=== PATIENT | female | born 1980 | race Native Hawaiian/Other Pacific Islander ===

== ENCOUNTER 2017-10-23 14:30 | Observation (INO) | payer OTHER ==
--- NOTE | 2017-10-23 14:34 | PDOC ---
Rapid Medical Evaluation Time Seen by Provider: 10/23/17 14:32 Medical Evaluation: Allergies Allergy/AdvReac Type Severity Reaction Status Date / Time No Known Allergies Allergy Verified 10/23/17 14:32 10/23/17 14:32 I have performed a brief in-person evaluation of this patient. The patient presents with a chief complaint of: sent by PMD for Hgb-6.6 Pertinent physical exam findings: no active bleeding I have ordered the following: CBC, CMP, T&S, EKG, cardiac profile, ua, cxr The patient will proceed to the ED for further evaluation. Discharge Disposition - Diagnosis Anemia - Referrals - Patient Instructions - Post Discharge Activity
[2017-10-23 15:19] LABS: INR 1.25 (0.82-1.09); PROTHROMBIN TIME (PATIENT) 14.1 SEC (9.7-13.0)
[2017-10-23 15:31] LABS: ALBUMIN 4.1 g/dl (3.4-5.0); ANION GAP 8 (8-16); BLOOD UREA NITROGEN 14 mg/dL (7-18); CALCIUM 8.7 mg/dL (8.5-10.1); CHLORIDE 105 mmol/L (98-107); CO2 24 mmol/L (21-32); CREATININE 0.7 mg/dL (0.55-1.02); GLUCOSE,RANDOM 82 mg/dL (74-106); POTASSIUM 4.4 mmol/L (3.5-5.1); SGOT/AST 17 U/L (15-37); SGPT/ALT 21 U/L (12-78); SODIUM 137 mmol/L (136-145)
[2017-10-23 15:35] LABS: ALK PHOS 114 U/L (45-117); BILIRUBIN,TOTAL 0.4 mg/dL (0.2-1.0); TOT PROT 7.8 g/dl (6.4-8.2)
[2017-10-23 15:55] LABS: BASO % 1.3 % (0-2.0); EOS % 2.1 % (0-4.5); HEMATOCRIT 28.3 % (32.4-45.2); HEMOGLOBIN 7.3 GM/dL (10.7-15.3); LYMPH % 22.7 % (8-40); MCHC 25.9 g/dl (32.0-36.0); MEAN CELL VOLUME 52.1 fl (80-96); MEAN PLT VOLUME 9.9 fl (7.5-11.1); MONO % 4.9 % (3.8-10.2); PLATELET COUNT 336 K/MM3 (134-434); RBC 5.42 M/mm3 (3.60-5.2); RDW 23.6 % (11.6-15.6); WHITE BLOOD COUNT 9.8 K/mm3 (4.0-10.0)
[2017-10-23 15:56] LABS: MCH 13.5 pg (25.7-33.7)
--- NOTE | 2017-10-23 16:30 | PDOC ---
History of Present Illness - General Chief Complaint: Blood Transfusion Stated Complaint: BLOOD TRANSFUSION Time Seen by Provider: 10/23/17 14:32 History Source: Patient Exam Limitations: No Limitations - History of Present Illness Initial Comments: 10/23/17 16:29 The patient is a 37F with a PMH of anemia who presents from her PCP's office for worsening anemia. The patient states that for the past few weeks she's noticed that she's been getting more short of breath recently. She went to her PCP to get evaluated and he sent her to the ER for transfusion as he noticed her Hgb to be 6.6. She denies any CP, fever, chills, nausea, vomiting, hematuria , hematochezia, and bleeding when brushing her teeth. Past History - Past Medical History Allergies/Adverse Reactions: Allergies Allergy/AdvReac Type Severity Reaction Status Date / Time No Known Allergies Allergy Verified 10/23/17 14:32 Home Medications: Ambulatory Orders Amlodipine Besylate 5 mg PO DAILY 10/23/17 Varenicline Tartrate [Chantix] 1 mg PO DAILY 10/23/17 COPD: No HTN: Yes - Suicide/Smoking/Psychosocial Hx Smoking History: Current every day smoker Have you smoked in the past 12 months: Yes Number of Cigarettes Smoked Daily: 20 Information on smoking cessation initiated: Yes 'Breaking Loose' booklet given: 10/23/17 Hx Alcohol Use: No Drug/Substance Use Hx: No Substance Use Type: None Hx Substance Use Treatment: No Review of Systems - Review of Systems Able to Perform ROS?: Yes Comments:: 10/23/17 16:34 GENERAL/CONSTITUTIONAL: No fever or chills. No weakness. HEAD, EYES, EARS, NOSE AND THROAT: No change in vision. No ear pain or discharge. No sore throat. CARDIOVASCULAR: No chest pain, palpitations, or lightheadedness. RESPIRATORY: Positive for shortness of breath. No cough, wheezing, or hemoptysis. GASTROINTESTINAL: No nausea, vomiting, diarrhea, constipation, or abdominal pain. GENITOURINARY: No dysuria, frequency, hematuria, or change in urination. MUSCULOSKELETAL: No joint or muscle swelling or pain. No neck or back pain. SKIN: No rash or lesions. NEUROLOGIC: No headache, numbness, tingling, weakness, loss of consciousness, or change in strength/sensation. ENDOCRINE: No increased thirst. No abnormal weight change. HEMATOLOGIC/LYMPHATIC: No anemia, easy bleeding, or history of blood clots. ALLERGIC/IMMUNOLOGIC: No hives or skin allergy. Is the patient limited Armenian proficient: No *Physical Exam - Vital Signs Last Vital Signs Temp Pulse Resp BP Pulse Ox 98.5 F 91 H 18 152/104 100 10/23/17 14:33 10/23/17 14:33 10/23/17 14:33 10/23/17 14:33 10/23/17 14:33 - Physical Exam Comments: 10/23/17 16:35 GENERAL: Well developed, well nourished. Awake and alert. No acute distress. HEENT: Normocephalic, atraumatic. Hearing grossly normal. Moist mucous membranes. PERRLA, EOMI. No conjunctival pallor. Sclera are non-icteric. Oropharynx is clear. NECK: Supple. Full ROM. CARDIOVASCULAR: Regular rate and rhythm. No murmurs, rubs, or gallops. PULMONARY: No evidence of respiratory distress. Lungs clear to auscultation bilaterally. No wheezing, rales or rhonchi. ABDOMINAL: Soft. Non-tender. Non-distended. No rebound or guarding. GENITOURINARY: No CVA tenderness bilaterally. MUSCULOSKELETAL: Normal range of motion at all joints. No bony deformities or tenderness. EXTREMITIES: No cyanosis. No clubbing. No edema. No calf tenderness. SKIN: Warm and dry. Normal capillary refill. No rashes. No jaundice. NEUROLOGICAL: Alert, awake, appropriate. Cranial nerves 2-12 intact. Normal speech. Gait is normal without ataxia. PSYCHIATRIC: Cooperative. Good eye contact. Appropriate mood and affect. ED Treatment Course - LABORATORY CBC & Chemistry Diagram: 10/23/17 14:55 10/23/17 14:55 - ADDITIONAL ORDERS Additional order review: Laboratory Results 10/23/17 10/23/17 10/23/17 14:55 14:55 14:34 PT with INR 14.10 H INR 1.25 H Sodium 137 Potassium 4.4 Chloride 105 Carbon Dioxide 24 Anion Gap 8 BUN 14 Creatinine 0.7 Creat Clearance w eGFR > 60 Random Glucose 82 Calcium 8.7 Total Bilirubin 0.4 D AST 17 ALT 21 Alkaline Phosphatase 114 Creatine Kinase 37 Troponin I < 0.02 Total Protein 7.8 Albumin 4.1 Blood Type O POSITIVE Antibody Screen Negative 10/23/17 14:55 RBC 5.42 H MCV 52.1 L MCHC 25.9 L RDW 23.6 H D MPV 9.9 Neutrophils % 69.0 Lymphocytes % 22.7 D Monocytes % 4.9 Eosinophils % 2.1 Basophils % 1.3 Medical Decision Making - Medical Decision Making 10/23/17 16:35 The patient is a 37F with a PMH of anemia who presents with dyspnea and a Hgb of 6.[address] Johnson's office. Repeat CBC shows a hgb of 7.3. Will place order for 1 unit. 10/23/17 17:32 I have endorsed the patient to JOSE Navarro for ED Obs admission. Will transfuse [address] orders for ED Obs. *DC/Admit/Observation/Transfer Diagnosis at time of Disposition: Anemia Qualifiers: Anemia type: unspecified type Qualified Code(s): D64.9 - Anemia, unspecified - Discharge Dispostion Condition at time of disposition: Stable Decision to Admit order: Yes - Referrals Referrals: Ryland Johnson MD [Primary Care Provider] - - Patient Instructions - Post Discharge Activity
--- NOTE | 2017-10-23 17:29 | PDOC ---
Attending Attestation - Resident Resident Name: Derrek Li - ED Attending Attestation I have performed the following: I have examined & evaluated the patient, The case was reviewed & discussed with the resident, I agree w/resident's findings & plan, Exceptions are as noted - HPI HPI: 10/23/17 17:27 The patient is a 37 year old female with history of anemia who presents to the ED complaining of several weeks of progressively worsening shortness of breath. States she was seen by her PCP, who found her to be anemic on bloodwork and sent her to the ED for blood transfusions. States this has happened in the past with her anemia. No chest pain or lightheadedness. Pt has h/o menorraghia, which is believed to be the cause of pt's anemia. Denies hematemesis or blood per rectum. - Physicial Exam PE: 10/23/17 17:28 "GENERAL: Awake, alert, and fully oriented, in no acute distress. HEAD: No signs of trauma EYES: PERRLA, EOMI, sclera anicteric, conjunctiva clear ENT: Auricles normal inspection, hearing grossly normal, nares patent, oropharynx clear without exudates. Moist mucosa NECK: Nontender, no stepoffs, Normal ROM, supple, no lymphadenopathy, JVD, or masses LUNGS: Breath sounds equal, clear to auscultation bilaterally. No wheezes, and no crackles HEART: Regular rate and rhythm, normal S1 and S2, no murmurs, rubs or gallops ABDOMEN: Soft, nontender, normoactive bowel sounds. No guarding, no rebound. No masses EXTREMITIES: Normal range of motion, no edema. No clubbing or cyanosis. No cords, erythema, or tenderness NEUROLOGICAL: Cranial nerves II through XII intact. 5/5 strength and sensation in all extremities, Normal speech, normal gait, normal cerebellar function SKIN: Warm, Dry, normal turgor, no rashes or lesions noted. " - Medical Decision Making 10/23/17 17:29 37 F with likely symptomatic anemia. Hb <7 on outpt labs. Will recheck CBC and transfuse as needed. Pt otherwise hemodynamically stable. - Labs, T&S - Transfuse PRN 10/23/17 17:34 Pt's Hb 7.3 Will transfuse 1u PRBC given pt's persistent symptoms of SOB. Admit obs
--- NOTE | 2017-10-23 21:36 | HP ---
CHIEF COMPLAINT: Increased SOB, Low H/H PCP: Dr. Johnson HISTORY OF PRESENT ILLNESS: This is a 37 y/o young woman with a PMH Chronic Anemia (multiple blood transfusions), Menorrhagia, Hemorrhoids, Rectal Bleeding, HTN. Who presents to the ED sent in by her PMD for Hgb 6.6, with increased SOB with normal and moderate activity x 2 weeks. Patient reports having episodes of dizziness and fatigue. Patient reports having BRBPR with abdominal cramping 2 weeks ago. Patient reports having an EGD/Colonoscopy around 3 years ago- wnl. Patient reports that her menses is usually heavy, 8 days in which she uses 36 tampons and 36 pads during the first few days. Age of Menarche 11, cycle- Q28 days, LMP 10/02/17 ER course was notable for: (1) Hgb 7.3, Hct 28.8 (2) EKG- NSR with no ST or TWI (3) Chest Xray- no acute pathology Recent Travel: None PAST MEDICAL HISTORY: Chronic Anemia HTN Menorrhagia Rectal Bleeding PAST SURGICAL HISTORY: x2 EGD Colonoscopy Social History: Smoking: Cigarettes 1PPD Alcohol: None Drugs: None Lives with spouse and children, employed Family History: Father: HTN Mother: HTN, Hypothyroid, Hepatitis A Paternal Grandfather: Colon Ca Maternal Grandmother: Liver Ca Allergies No Known Allergies Allergy (Verified 10/23/17 14:32) HOME MEDICATIONS: Home Medications Medication Instructions Recorded Amlodipine Besylate 5 mg PO DAILY 10/23/17 Ferrous Sulfate 325 mg PO TID 10/23/17 Varenicline Tartrate [Chantix] 0.5 mg PO DAILY 10/23/17 REVIEW OF SYSTEMS CONSTITUTIONAL: fatigue Absent: fever, chills, diaphoresis, generalized weakness, malaise, loss of appetite, weight change HEENT: Absent: rhinorrhea, nasal congestion, throat pain, throat swelling, difficulty swallowing, mouth swelling, ear pain, eye pain, visual changes CARDIOVASCULAR: Absent: chest pain, syncope, palpitations, irregular heart rate, lightheadedness , peripheral edema RESPIRATORY: shortness of breath, dyspnea with exertion Absent: cough, orthopnea, wheezing, stridor, hemoptysis GASTROINTESTINAL: hematochezia Absent: abdominal pain, abdominal distension, nausea, vomiting, diarrhea, constipation, melena GENITOURINARY: Absent: dysuria, frequency, urgency, hesitancy, hematuria, flank pain, genital pain MUSCULOSKELETAL: Absent: myalgia, arthralgia, joint swelling, back pain, neck pain SKIN: Absent: rash, itching, pallor HEMATOLOGIC/IMMUNOLOGIC: Absent: easy bleeding, easy bruising, lymphadenopathy, frequent infections ENDOCRINE: Absent: unexplained weight gain, unexplained weight loss, heat intolerance, cold intolerance NEUROLOGIC: dizziness Absent: headache, focal weakness or paresthesias, dizziness, unsteady gait, seizure, mental status changes, bladder or bowel incontinence PSYCHIATRIC: Absent: anxiety, depression, suicidal or homicidal ideation, hallucinations. PHYSICAL EXAMINATION Vital Signs - 24 hr 10/23/17 10/23/17 10/23/17 14:33 17:30 18:18 Temperature 98.5 F Pulse Rate 91 H Pulse Rate [ 99 H Apical] Respiratory 18 14 Rate Blood Pressure 152/104 Blood Pressure 157/95 [Left Arm] O2 Sat by Pulse 100 100 100 Oximetry (%) 10/23/17 10/23/17 20:40 20:55 Temperature 98.2 F 98.2 F Pulse Rate Pulse Rate [ 98 H 83 Apical] Respiratory 18 20 Rate Blood Pressure Blood Pressure 151/89 142/79 [Left Arm] O2 Sat by Pulse 100 100 Oximetry (%) GENERAL: Awake, alert, and fully oriented, in no acute distress. HEAD: Normal with no signs of trauma. EYES: Pupils equal, round and reactive to light, extraocular movements intact, sclera anicteric, conjunctiva, pale clear. No lid lag. EARS, NOSE, THROAT: Ears normal, nares patent, oropharynx clear without exudates. Moist mucous membranes. NECK: Normal range of motion, supple without lymphadenopathy, JVD, or masses. LUNGS: Breath sounds equal, clear to auscultation bilaterally. No wheezes, and no crackles. No accessory muscle use. HEART: Regular rate and rhythm, normal S1 and S2 without murmur, rub or gallop. ABDOMEN: Soft, nontender, not distended, normoactive bowel sounds, no guarding, no rebound, no masses. No hepatomegaly or splenomegaly. MUSCULOSKELETAL: Normal range of motion at all joints. No bony deformities or tenderness. No CVA tenderness. UPPER EXTREMITIES: 2+ pulses, warm, well-perfused. No cyanosis. No clubbing. No peripheral edema. LOWER EXTREMITIES: 2+ pulses, warm, well-perfused. No calf tenderness. No peripheral edema. NEUROLOGICAL: Cranial nerves II-XII intact. Normal speech. Gait not observed. PSYCHIATRIC: Cooperative. Good eye contact. Appropriate mood and affect. SKIN: Warm, dry, normal turgor, no rashes or lesions noted, normal capillary refill. Laboratory Results - last 24 hr 10/23/17 10/23/17 10/23/17 14:34 14:55 14:55 WBC 9.8 RBC 5.42 H Hgb 7.3 L Hct 28.3 L MCV 52.1 L MCH 13.5 L MCHC 25.9 L RDW 23.6 H D Plt Count 336 MPV 9.9 Neutrophils % 69.0 Lymphocytes % 22.7 D Monocytes % 4.9 Eosinophils % 2.1 Basophils % 1.3 PT with INR 14.10 H INR 1.25 H Sodium Potassium Chloride Carbon Dioxide Anion Gap BUN Creatinine Creat Clearance w eGFR Random Glucose Calcium Total Bilirubin AST ALT Alkaline Phosphatase Creatine Kinase Troponin I Total Protein Albumin Serum , Qual Blood Type O POSITIVE Antibody Screen Negative Crossmatch See Detail 10/23/17 10/23/17 14:55 21:01 WBC RBC Hgb Hct MCV MCH MCHC RDW Plt Count MPV Neutrophils % Lymphocytes % Monocytes % Eosinophils % Basophils % PT with INR INR Sodium 137 Potassium 4.4 Chloride 105 Carbon Dioxide 24 Anion Gap 8 BUN 14 Creatinine 0.7 Creat Clearance w eGFR > 60 Random Glucose 82 Calcium 8.7 Total Bilirubin 0.4 D AST 17 ALT 21 Alkaline Phosphatase 114 Creatine Kinase 37 Troponin I < 0.02 Total Protein 7.8 Albumin 4.1 Serum , Qual Negative Blood Type Antibody Screen Crossmatch ASSESSMENT/PLAN: This is a 37 y/o young woman with a PMH of Chronic Anemia, Menorrhagia, HTN, Rectal Bleeding. Placed in Tele Observation for Symptomatic Anemia. Problem List - Problem (1) Anemia Assessment/Plan: - Hx of anemia with multiple transfusions - Patient currently symptomatic with increased SOB - Hgb 7.3 here, at PCPs 6.6 - Given PRBC x1 in ED - Will add on Iron Studies - Serum Preg-pending - Will order CXR r/o HF - Patient should f/u with Hematology and GI 2/2 hx rectal bleeding - Continue Ferrous Sulfate - Will add Colace, Senna to avoid constipation and encourage pt. compliance with her iron supplements - Repeat CBC in am - Pt to d/c tomorrow, if symptoms resolve, Hgb improved - Monitor vitals Code(s): D64.9 - ANEMIA, UNSPECIFIED Qualifiers: Anemia type: unspecified type Qualified Code(s): D64.9 - Anemia, unspecified (2) HTN (hypertension) Assessment/Plan: - Sub optimal control - Monitor BP - Continue Amlodipine - Monitor renal function Code(s): I10 - ESSENTIAL (PRIMARY) HYPERTENSION (3) H/O menorrhagia Assessment/Plan: - stable - FU with [employer] in outpatient Code(s): Z87.42 - PERSONAL HISTORY OF OTH DISEASES OF THE FEMALE GENITAL TRACT (4) Tobacco dependency Assessment/Plan: - Counseled on smoking cessation - Continue Chantix Code(s): F17.200 - NICOTINE DEPENDENCE, UNSPECIFIED, UNCOMPLICATED (5) Hemorrhoid Assessment/Plan: - Stable - Adequate fluid intake and increase fiber to diet Code(s): K64.9 - UNSPECIFIED HEMORRHOIDS (6) Rectal bleeding Assessment/Plan: - Patient reports BRBPR with abdominal cramping, 2 weeks ago - Appreciate GI Consult Code(s): K62.5 - HEMORRHAGE OF ANUS AND RECTUM (7) DVT prophylaxis Assessment/Plan: - Low Risk - OOB - SCDs Code(s): [id number] - Visit type - Emergency Visit Emergency Visit: Yes ED Registration Date: 10/23/17 Care time: The patient presented to the Emergency Department on the above date and was hospitalized for further evaluation of their emergent condition. - New Patient This patient is new to me today: Yes Date on this admission: 10/23/17 - Critical Care Critical Care patient: No Hospitalist Screening - Colonoscopy Questionnaire Colonoscopy Questionnaire: Colonoscopy Questionnaire - Patient: 50 - 75 years old and never had a screening colonoscopy: No History of colon or rectal polyps, or CA: No History of IBD, Crohn's disease or UC: No History of abdominal radiation therapy as a child: No - Relative: 1 with colon or rectal CA, or polyps at age 60 or younger: Yes Colon or rectal CA diagnosed at age 45 or younger: No Multiple relatives with colon or rectal CA: No - Outcome: Screening Result: Positive Screen
[2017-10-23] MEDS ORDERED: FERROUS SO4 325 MG TABLET (FP) ONE (22:55)
[2017-10-23] MEDS ORDERED: DOCUSATE SODIUM 100 MG CAPSULE (FP) PO ONE (22:55)
[2017-10-23] MEDS: VARENICLINE TARTRATE 0.5 MG TAB PO SCH (23:56)
[2017-10-23] MEDS: DOCUSATE SODIUM 100 MG CAPSULE (FP) PO SCH (23:58)
[2017-10-23] MEDS: FERROUS SO4 325 MG TABLET (FP) PO SCH (23:59)
[2017-10-24] MEDS ORDERED: ZOLPIDEM TARTRATE 5 MG TABLET PO ONE (02:17)
[2017-10-24 04:27] VITALS: BMI 38.1
[2017-10-24] MEDS: DOCUSATE SODIUM 100 MG CAPSULE (FP) PO SCH ×2 (05:58→15:03)
[2017-10-24 07:31] LABS: CHLORIDE 106 mmol/L (98-107); POTASSIUM 4.2 mmol/L (3.5-5.1); SODIUM 139 mmol/L (136-145)
[2017-10-24 07:35] LABS: ANION GAP 9 (8-16); BLOOD UREA NITROGEN 9 mg/dL (7-18); CALCIUM 8.6 mg/dL (8.5-10.1); CO2 24 mmol/L (21-32); CREATININE 0.6 mg/dL (0.55-1.02); GLUCOSE,RANDOM 85 mg/dL (74-106)
[2017-10-24] MEDS ORDERED: PT OWN MED DRAWER 7, Y5N ONE (08:36)
[2017-10-24 08:52] LABS: HEMATOCRIT 27.8 % (32.4-45.2); HEMOGLOBIN 7.9 GM/dL (10.7-15.3); MCHC 28.5 g/dl (32.0-36.0); MEAN CELL VOLUME 55.3 fl (80-96); RBC 5.02 M/mm3 (3.60-5.2); WHITE BLOOD COUNT 10.3 K/mm3 (4.0-10.0)
[2017-10-24 08:53] LABS: BASO % 0.8 % (0-2.0); EOS % 2.3 % (0-4.5); LYMPH % 15.8 % (8-40); MEAN PLT VOLUME 9.6 fl (7.5-11.1); MONO % 5.7 % (3.8-10.2); NEUT % 75.4 % (42.8-82.8); PLATELET COUNT 274 K/MM3 (134-434); RDW 23.7 % (11.6-15.6)
[2017-10-24 09:10] LABS: MCH 15.7 pg (25.7-33.7)
[2017-10-24] MEDS: FERROUS SO4 325 MG TABLET (FP) PO SCH ×3 (09:17→18:36)
[2017-10-24] MEDS: VARENICLINE TARTRATE 0.5 MG TAB PO SCH (09:22)
[2017-10-24] MEDS ORDERED: amLODIPine BESYLATE 5 MG TABLET (FP) PO SCH (10:00)
--- NOTE | 2017-10-24 11:55 | EKG ---
Test Reason : Blood Pressure : / mmHG Vent. Rate : 096 BPM Atrial Rate : 096 BPM P-R Int : 128 ms QRS Dur : 084 ms QT Int : 334 ms P-R-T Axes : 009 028 059 degrees QTc Int : 421 ms NORMAL SINUS RHYTHM NORMAL ECG WHEN COMPARED WITH ECG OF 04-SEP-2015 18:17, NO SIGNIFICANT CHANGE WAS FOUND Confirmed by MD PIERRE, MATY ([id number]) on 10/24/2017 11:55:11 AM Referred By: Confirmed By:MATY JAY MD
[2017-10-24 11:59] LABS: PLATELET ESTIMATE ADEQUATE
--- NOTE | 2017-10-24 14:14 | PN ---
Progress Note, Physician Chief Complaint: EVENTS AND NOTES REVIEWED SENT FROM OFFICE FOR BRBPR AND ANEMIA WITH HEMOGLOBIN OF 6 AWAKE ALERT NAD - Current Medication List Current Medications: Active Medications Amlodipine Besylate (Norvasc -) 5 mg PO DAILY [facility] Last Admin: 10/24/17 09:17 Dose: 5 mg Docusate Sodium (Colace -) 100 mg PO TID [facility] Last Admin: 10/24/17 05:58 Dose: 100 mg Ferrous Sulfate (Feosol -) 325 mg PO TIDCM [facility] Last Admin: 10/24/17 12:20 Dose: 325 mg Iron Sucrose 100 mg/ Sodium (Chloride) 100 mls @ 200 mls/hr IVPB ONCE ONE Stop: 10/24/17 14:37 Varenicline (Chantix -) 0.5 mg PO BID [facility] Last Admin: 10/24/17 09:22 Dose: 0.5 mg - Objective Vital Signs: Vital Signs Temperature 97.8 F 10/24/17 09:00 Pulse Rate 96 H 10/24/17 09:00 Respiratory Rate 22 10/24/17 09:00 Blood Pressure 153/91 10/24/17 09:00 O2 Sat by Pulse Oximetry (%) 100 10/24/17 05:18 Constitutional: Yes: No Distress Eyes: Yes: WNL HENT: Yes: WNL Neck: Yes: WNL Cardiovascular: Yes: WNL Respiratory: Yes: WNL Gastrointestinal: Yes: WNL Genitourinary: Yes: WNL Musculoskeletal: Yes: WNL Extremities: Yes: WNL Edema: No Peripheral Pulses WNL: Yes Integumentary: Yes: WNL Wound/Incision: Yes: Clean/Dry Neurological: Yes: WNL ...Motor Strength: WNL Psychiatric: Yes: WNL Labs: CBC, BMP 10/24/17 06:35 10/24/17 06:35 INR, PTT INR 1.25 (0.82-1.09) H 10/23/17 14:55 Problem List - Problems (1) Anemia Code(s): D64.9 - ANEMIA, UNSPECIFIED Qualifiers: Anemia type: unspecified type Qualified Code(s): D64.9 - Anemia, unspecified (2) DVT prophylaxis Code(s): [id number] - (3) HTN (hypertension) Code(s): I10 - ESSENTIAL (PRIMARY) HYPERTENSION (4) Rectal bleeding Code(s): K62.5 - HEMORRHAGE OF ANUS AND RECTUM Assessment/Plan TRANSFUSE PRBC AND IRON GI EVAL DVT PROPHYLAXIS OOB TO CHAIR CHECK CBC IN AM
[2017-10-24] MEDS ORDERED: IRON SUCROSE INJECTION 100 MG in SODIUM CHLORIDE 95 ML IVPB ONE (14:15)
--- NOTE | 2017-10-24 15:57 | CONSULT ---
Consult Consult Specialty:: Hematology - History of Present Illness History of Present Illness: 37 y/o young woman with a PMH Chronic Anemia (multiple blood transfusions), Menorrhagia, Hemorrhoids, Rectal Bleeding, HTN. Who presents to the ED sent in by her PMD for Hgb 6.6, with increased SOB with normal and moderate activity x 2 weeks. Patient reports having episodes of dizziness and fatigue. Patient reports having BRBPR with abdominal cramping 2 weeks ago. Patient reports having an EGD/Colonoscopy around 3 years ago- wnl. Patient reports that her menses is usually heavy, 8 days. pt seen and examined. d/w pt. - History Source History Provided By: Patient, Medical Record - Past Medical History ...LMP: 05/29/16 - Past Surgical History Past Surgical History: Yes: None - Alcohol/Substance Use Hx Alcohol Use: No History of Substance Use: reports: None - Smoking History Smoking history: Current every day smoker Have you smoked in the past 12 months: Yes Aproximately how many cigarettes per day: 20 - Social History ADL: Independent History of Recent Travel: No Home Medications - Allergies Allergies/Adverse Reactions: Allergies Allergy/AdvReac Type Severity Reaction Status Date / Time No Known Allergies Allergy Verified 10/23/17 14:32 - Home Medications Home Medications: Ambulatory Orders Amlodipine Besylate 5 mg PO DAILY 10/23/17 Ferrous Sulfate 325 mg PO TID 10/23/17 Varenicline Tartrate [Chantix] 0.5 mg PO DAILY 10/23/17 Amlodipine Besylate [Norvasc -] 5 mg PO DAILY tablet 10/24/17 Docusate Sodium [Colace -] 100 mg PO TID capsule 10/24/17 Ferrous Sulfate [Feosol] 325 mg PO TIDCM ud 10/24/17 Pantoprazole Sodium [Protonix -] 40 mg PO DAILY #30 tablet.ec 10/24/17 Varenicline Tartrate [Chantix -] 0.5 mg PO BID tab 10/24/17 Physical Exam Vital Signs: Vital Signs Temperature 98.2 F 10/24/17 14:00 Pulse Rate 87 10/24/17 14:00 Respiratory Rate 22 10/24/17 09:00 Blood Pressure 143/74 10/24/17 14:00 O2 Sat by Pulse Oximetry (%) 100 10/24/17 05:18 Constitutional: Yes: Well Nourished, No Distress Eyes: Yes: WNL, Conjunctiva Clear HENT: Yes: Atraumatic, Normocephalic Neck: Yes: Supple, Trachea Midline Cardiovascular: Yes: Regular Rate and Rhythm Respiratory: Yes: Regular, CTA Bilaterally Gastrointestinal: Yes: Normal Bowel Sounds, Soft, Abdomen, Obese Labs: CBC, BMP 10/24/17 06:35 10/24/17 06:35 Assessment/Plan Severe Iron deficiency anemia -severe menorrhogea could be an etiology -GI w/u pending -for PRBCs, post will give venofer LOS -for OP f/u -d.w the pt in detail
--- NOTE | 2017-10-24 19:02 | CON.GI ---
Consult Consult Specialty:: GI Reason for Consultation:: symptomatic anemia, bright red blood per rectum - History of Present Illness History of Present Illness: chart reviewed. Events noted. As per initial intake:This is a 37 y/o young woman with a PMH Chronic Anemia (multiple blood transfusions), Menorrhagia, Hemorrhoids, Rectal Bleeding, HTN. Who presents to the ED sent in by her PMD for Hgb 6.6, with increased SOB with normal and moderate activity x 2 weeks. Patient reports having episodes of dizziness and fatigue. Patient reports having BRBPR with abdominal cramping 2 weeks ago. Patient reports having an EGD/ Colonoscopy around 3 years ago- wnl. Patient reports that her menses is usually heavy, 8 days in which she uses 36 tampons and 36 pads during the first few days. Age of Menarche 11, cycle- Q28 days, LMP 10/02/17 At the time of this and contacted the patient appears comfortable. No stigmata of ongoing gastrointestinal bleeding. Patient reports having epigastric pain followed by a bloody bowel movement was at 3 hours later. Denies chronic heartburn, dysphagia, odynophagia, hematemesis, jaundice, low grade fever, chills, changes in stool caliber, unintentional weight loss. EGD and colonoscopy 3 years ago were unrevealing. Since admission, patient received 1 unit of PRBC and IV iron. there is no history of gastric, or duodenal ulcer, significant esophagitis, coagulopathy. Denies chronic alcohol , or NSAID use. blood work revealed microcytic, hypochromic anemia. Normal BUN and creatinine. - History Source History Provided By: Patient, Medical Record - Past Medical History ...LMP: 05/29/16 - Past Surgical History Past Surgical History: Yes: None - Alcohol/Substance Use Hx Alcohol Use: No History of Substance Use: reports: None - Smoking History Smoking history: Current every day smoker Have you smoked in the past 12 months: Yes Aproximately how many cigarettes per day: 20 - Social History ADL: Independent History of Recent Travel: No Home Medications - Allergies Allergies/Adverse Reactions: Allergies Allergy/AdvReac Type Severity Reaction Status Date / Time No Known Allergies Allergy Verified 10/23/17 14:32 - Home Medications Home Medications: Ambulatory Orders Amlodipine Besylate 5 mg PO DAILY 10/23/17 Ferrous Sulfate 325 mg PO TID 10/23/17 Varenicline Tartrate [Chantix] 0.5 mg PO DAILY 10/23/17 Family Disease History - Family Disease History Family History: Unremarkable Review of Systems Findings/Remarks: As per H&P and HPI Physical Exam-GI Vital Signs: Vital Signs Temperature 98.2 F 10/24/17 14:00 Pulse Rate 87 10/24/17 14:00 Respiratory Rate 22 10/24/17 13:00 Blood Pressure 143/74 10/24/17 14:00 O2 Sat by Pulse Oximetry (%) 98 10/24/17 13:00 Constitutional: Yes: Well Nourished, No Distress, Calm Eyes: Yes: Conjunctiva Clear HENT: Yes: Atraumatic Neck: Yes: Supple Cardiovascular: Yes: Regular Rate and Rhythm. No: Bradycardia, Tachycardia Respiratory: Yes: Regular ...Auscultate: Yes: Normoactive Bowel Sounds ...Rectal Exam: Yes: Guaiac Positive Neurological: Yes: Alert, Oriented Labs: CBC, BMP 10/24/17 06:35 10/24/17 06:35 INR, PTT INR 1.25 (0.82-1.09) H 10/23/17 14:55 Laboratory Last Values WBC 10.3 K/mm3 (4.0-10.0) H 10/24/17 06:35 RBC 5.02 M/mm3 (3.60-5.2) 10/24/17 06:35 Hgb 7.9 GM/dL (10.7-15.3) L 10/24/17 06:35 Hct 27.8 % (32.4-45.2) L 10/24/17 06:35 MCV 55.3 fl (80-96) L D 10/24/17 06:35 MCH 15.7 pg (25.7-33.7) L 10/24/17 06:35 MCHC 28.5 g/dl (32.0-36.0) L 10/24/17 06:35 RDW 23.7 % (11.6-15.6) H 10/24/17 06:35 Plt Count 274 K/MM3 (134-434) 10/24/17 06:35 MPV 9.6 fl (7.5-11.1) 10/24/17 06:35 Neutrophils % 75.4 % (42.8-82.8) 10/24/17 06:35 Lymphocytes % 15.8 % (8-40) D 10/24/17 06:35 Monocytes % 5.7 % (3.8-10.2) 10/24/17 06:35 Eosinophils % 2.3 % (0-4.5) 10/24/17 06:35 Basophils % 0.8 % (0-2.0) 10/24/17 06:35 Platelet Estimate Adequate 10/24/17 06:35 Platelet Comment Few large plts 10/24/17 06:35 PT with INR 14.10 SEC (9.7-13.0) H 10/23/17 14:55 INR 1.25 (0.82-1.09) H 10/23/17 14:55 Sodium 139 mmol/L (136-145) 10/24/17 06:35 Potassium 4.2 mmol/L (3.5-5.1) 10/24/17 06:35 Chloride 106 mmol/L (98-107) 10/24/17 06:35 Carbon Dioxide 24 mmol/L (21-32) 10/24/17 06:35 Anion Gap 9 (8-16) 10/24/17 06:35 BUN 9 mg/dL (7-18) 10/24/17 06:35 Creatinine 0.6 mg/dL (0.55-1.02) 10/24/17 06:35 Creat Clearance w eGFR > 60 (>60) 10/23/17 14:55 Random Glucose 85 mg/dL (74-106) 10/24/17 06:35 Calcium 8.6 mg/dL (8.5-10.1) 10/24/17 06:35 Ferritin 5.020 ng/ml (6.9-282.5) L 10/23/17 09:40 Total Bilirubin 0.4 mg/dL (0.2-1.0) D 10/23/17 14:55 AST 17 U/L (15-37) 10/23/17 14:55 ALT 21 U/L (12-78) 10/23/17 14:55 Alkaline Phosphatase 114 U/L (45-117) 10/23/17 14:55 Creatine Kinase 37 IU/L (26-192) 10/23/17 14:55 Troponin I < 0.02 ng/ml (0.00-0.05) 10/23/17 14:55 Total Protein 7.8 g/dl (6.4-8.2) 10/23/17 14:55 Albumin 4.1 g/dl (3.4-5.0) 10/23/17 14:55 Serum , Qual Negative 10/23/17 21:01 Blood Type O POSITIVE 10/23/17 14:34 Antibody Screen Negative 10/23/17 14:34 Crossmatch See Detail 10/23/17 14:34 Problem List - Problems (1) Gastrointestinal bleeding, lower Code(s): K92.2 - GASTROINTESTINAL HEMORRHAGE, UNSPECIFIED (2) Gastrointestinal bleeding, upper Code(s): K92.2 - GASTROINTESTINAL HEMORRHAGE, UNSPECIFIED (3) Microcytic hypochromic anemia Code(s): D50.9 - IRON DEFICIENCY ANEMIA, UNSPECIFIED (4) Symptomatic anemia Code(s): D64.9 - ANEMIA, UNSPECIFIED Assessment/Plan Gastrointestinal blood loss. Symptomatic anemia. Status post 1 unit of PRBC and iron IV. Asymptomatic at this time. Normal vital signs. No ongoing GI symptoms, or stigmata of ongoing gastrointestinal blood loss. EGD and colonoscopy are recommended to valuate for intraluminal lesions leading to bleeding and iron deficiency. Protonix 40 mg daily 30 minutes before breakfast for now. Avoid NSAIDs. Close monitoring for worsening gastrointestinal bleeding. Patient verbalized understanding and agrees with recommendations
[2017-10-24] MEDS ORDERED: PANTOPRAZOLE 40 MG TABLET (FP) PO SCH (19:15)
--- NOTE | 2017-10-24 19:34 | DS ---
Physical Examination Vital Signs: Vital Signs Temperature 98.2 F 10/24/17 14:00 Pulse Rate 87 10/24/17 14:00 Respiratory Rate 22 10/24/17 13:00 Blood Pressure 143/74 10/24/17 14:00 O2 Sat by Pulse Oximetry (%) 98 10/24/17 13:00 Findings/Remarks: see progress note cleared by GI and Hematology to go home and complete workup as outpatient Labs: CBC, BMP 10/24/17 06:35 10/24/17 06:35 Discharge Summary Reason For Visit: ANEMIA Current Active Problems Anemia (Acute) DVT prophylaxis (Acute) Gastrointestinal bleeding, lower (Acute) Gastrointestinal bleeding, upper (Acute) H/O menorrhagia (Acute) HTN (hypertension) (Acute) Microcytic hypochromic anemia (Acute) Symptomatic anemia (Acute) Tobacco dependency (Acute) Hospital Course: prbc transfusion and venofer transfusion, monitored for gi bleed and acute anemia workup as outpatient Condition: Stable - Instructions Diet, Activity, Other Instructions: see dr barboza in 1 week at his office for labs f/u with gi dr chung and heme dr cantu Referrals: Ryland Barboza MD [Primary Care Provider] - Disposition: HOME - Home Medications Comprehensive Discharge Medication List: Ambulatory Orders Amlodipine Besylate 5 mg PO DAILY 10/23/17 Ferrous Sulfate 325 mg PO TID 10/23/17 Varenicline Tartrate [Chantix] 0.5 mg PO DAILY 10/23/17 Amlodipine Besylate [Norvasc -] 5 mg PO DAILY tablet 10/24/17 Docusate Sodium [Colace -] 100 mg PO TID capsule 10/24/17 Ferrous Sulfate [Feosol] 325 mg PO TIDCM ud 10/24/17 Pantoprazole Sodium [Protonix -] 40 mg PO DAILY #30 tablet.ec 10/24/17 Varenicline Tartrate [Chantix -] 0.5 mg PO BID tab 10/24/17
[2017-10-24 23:09] VITALS: BP 147/88; PULSE 86; TEMP 98
[2017-10-25 08:07] LABS: SERUM IRON SATURATION 7 % (15-55); TOTAL IRON BINDING CAPACITY 446 ug/dL (250-450); UIBC 414 ug/dL (131-425)
[2017-10-27 16:31] LABS: HGB SOLUBILITY Negative (Negative); Hgb A 98.4 % (96.4-98.8); Hgb C 0 % (0.0); Hgb F 0 % (0.0-2.0); Hgb S 0 % (0.0)
== END 2017-10-24 20:11 | disposition home or self-care (01) ==
LOC: JER 14:30 → JERBED 17:48 → J4W 10-24 03:43
PROVIDERS: ADMIT Hospitalist; ATTEND Family Medicine
PROC: 30233N1 Transfusion of Nonautologous Red Blood Cells into Peripheral Vein, Percutaneous Approach (ICD-10-PCS; principal; 2017-10-23)
PROC: 3E033GC Introduction of Other Therapeutic Substance into Peripheral Vein, Percutaneous Approach (ICD-10-PCS; 2017-10-23)
DX: D50.9 Iron deficiency anemia, unspecified (principal); R06.02 Shortness of breath; I10 Essential (primary) hypertension; Z87.42 Personal history of other diseases of the female genital tract; F17.200 Nicotine dependence, unspecified, uncomplicated; K64.9 Unspecified hemorrhoids; K92.2 Gastrointestinal hemorrhage, unspecified
CPT/HCPCS: 36415; 36430; 71045-TC-FY; 80048; 80053; 82550; 82728; 83021; 83540; 83550; 84484; 84703; 85025; 85610; 85660; 86850; 86900; 86901; 86922; 93005; 93010; 96365; 99285-25; G0378; J1756; P9038; P9058

== ENCOUNTER 2018-04-02 05:09 | Day surgery (SDC) | payer OTHER ==
[2018-03-29 09:04] VITALS: BMI 38.0
[~2018-04-02 05:09] MED LIST: BUPIVACAINE HCL/PF 0.5% (5MG/ML) 10 ML VIAL IJ ONE
[2018-04-02] MEDS ORDERED: SUCCINYLCHOLINE CHLORIDE 200 MG/10 ML VIAL ONE (07:11)
[2018-04-02] MEDS ORDERED: PROPOFOL 20 ML ONE ×2 (07:11→09:14)
[2018-04-02] MEDS ORDERED: fentaNYL CITRATE 250 MCG/5 ML VIAL ONE (07:11)
[2018-04-02] MEDS ORDERED: ROCURONIUM BROMIDE 50 MG/5 ML VIAL ONE ×2 (07:11→09:46)
[2018-04-02] MEDS ORDERED: LIDOCAINE HCL/PF 2% SDV 5ML VIAL ONE (07:12)
[2018-04-02] MEDS ORDERED: DEXAMETHASONE SOD PHOSPHATE 4 MG/1 ML VIAL ONE (07:12)
[2018-04-02] MEDS ORDERED: ONDANSETRON 4 MG/2 ML VIAL IVPUSH PRN (08:12)
[2018-04-02] MEDS ORDERED: LACTATED RINGERS SOLUTION 1,000 ML IV SCH ×2 (08:15→09:15)
[2018-04-02] MEDS ORDERED: BUPIVACAINE HCL/PF 0.5% (5MG/ML) 10 ML VIAL ONE (08:16)
[2018-04-02] MEDS ORDERED: BUPIVACAINE HCL/PF 0.25% (2.5MG/ML) 10 ML VIAL ONE (08:19)
[2018-04-02] MEDS ORDERED: MIDAZOLAM HCL 2 MG/2 ML SINGLE DOSE VIAL ONE ×2 (08:20)
--- NOTE | 2018-04-02 08:59 | HP ---
Satellite PMH - Chief Complaint Chief Complaint: Leiomyomatous Uterus. Abdominal pain History of Present Illness: 38 yo G P History Source: Patient Limitations to Obtaining History: No Limitations - Past Medical History Allergies/Adverse Reactions: Allergies Allergy/AdvReac Type Severity Reaction Status Date / Time No Known Allergies Allergy Verified 04/02/18 07:48 ...LMP: 02/24/18 ...: No Heme/Onc: Yes: Anemia - Current Medications Current Medications: Home Medications Medication Instructions Recorded NK [No Known Home Medication] 03/29/18 Satellite Physical Exam - Physical Examination Vital Signs: Vital Signs Period Temp Pulse Resp BP Sys/Victor Pulse Ox Last 24 Hr 97.6 F-97.6 F 79-79 20-20 143-143/90-90 100 General Appearance: Well Nourished, Well Developed ENT: Clear Lung: Clear to auscultation Heart: Regular rate & rhythm Breasts: Soft, Non-Tender Abdomen: Soft Extremities: No edema Pelvic Exam: Within normal limits External Genitalia, Within normal limits Vagina, Within normal limits Cervix, Within normal limits Adenexa, Other Uterus (Uterus enlarged) Neurological: Intact, Alert, Oriented Satellite Impression/Plan - Impression/Plan Impression: Leiomyomatous uterus. abdominal pain Operative Procedure: Robotic laparoscopic Hysterectomy Date to be Performed: 04/02/18
[2018-04-02] MEDS ORDERED: IBUPROFEN 600 MG TABLET (FP) PO PRN (09:01)
[2018-04-02] MEDS ORDERED: PHENAZOPYRIDINE HCL 100 MG TABLET (FP) ONE (09:04)
[2018-04-02] MEDS ORDERED: ceFAZolin SODIUM 1 GM VIAL ONE (09:29)
[2018-04-02] MEDS ORDERED: ceFAZolin SODIUM 1 GM VIAL IVPB ONE (09:30)
[2018-04-02] MEDS ORDERED: GLYCOPYRROLATE 0.2 MG/1 ML VIAL ONE (11:26)
[2018-04-02] MEDS ORDERED: NEOSTIGMINE METHYLSULFATE 0.5 MG/ML - 10 ML MDV ONE (11:26)
[2018-04-02] MEDS ORDERED: BUPIVACAINE HCL/PF 0.5% (5MG/ML) 10 ML VIAL IJ ONE (11:32)
[2018-04-02] MEDS ORDERED: LABETALOL HCL 5 MG/1 ML (100MG/20 ML VIAL) IVPUSH PRN (12:27)
--- NOTE | 2018-04-02 13:12 | PN ---
Progress Note (short form) - Note Progress Note: 04.02.2018. Patient underwent total robotic hysterectomy and bilateral salpingectomy. Dr. Fong was the surgeon. I was the construction management assistant thtoughout the case. Davonte Sanchez MD
[2018-04-02] MEDS: PHENAZOPYRIDINE HCL 100 MG TABLET (FP) PO SCH ×2 (14:00→18:30)
--- NOTE | 2018-04-02 16:05 | OP ---
Operative Note - Note: Operative Date: 04/02/18 Pre-Operative Diagnosis: menorrhagia. Leiomyomatous uterus. adenomyosis Operation: RObotic laparoscopic Total hysterectomy. bilateral salpingectomy Findings: !2 cm uterus adenomyosis Post-Operative Diagnosis: Same as Pre-op Surgeon: Corazon Fong Pillowcase Cutter: Jose Roberto Sanchez Anesthesia: General Estimated Blood Loss (mls): 200 Operative Report Dictated: Yes
[2018-04-02 19:08] LABS: BASO % 0.1 % (0-2.0); HEMATOCRIT 29.3 % (32.4-45.2); HEMOGLOBIN 8.3 GM/dL (10.7-15.3); LYMPH % 4.5 % (8-40); MCHC 28.4 g/dl (32.0-36.0); MEAN CELL VOLUME 59.9 fl (80-96); MONO % 1.8 % (3.8-10.2); NEUT % 93.6 % (42.8-82.8); PLATELET COUNT 325 K/MM3 (134-434); RBC 4.89 M/mm3 (3.60-5.2); RDW 17.5 % (11.6-15.6); WHITE BLOOD COUNT 19.1 K/mm3 (4.0-10.0)
[2018-04-02 19:36] LABS: ANION GAP 12 MMOL/L (8-16); BLOOD UREA NITROGEN 13 mg/dL (7-18); CALCIUM 8.7 mg/dL (8.5-10.1); CHLORIDE 106 mmol/L (98-107); CO2 21 mmol/L (21-32); CREATININE 0.7 mg/dL (0.55-1.3); GLUCOSE,RANDOM 104 mg/dL (74-106); POTASSIUM 4.4 mmol/L (3.5-5.1); SODIUM 139 mmol/L (136-145)
[2018-04-02 20:32] LABS: ANISOCYTOSIS 3+
--- NOTE | 2018-04-02 20:58 | OP ---
DATE OF OPERATION: 04/02/2018 PREOPERATIVE DIAGNOSIS: Menorrhagia, adenomyosis with leiomyoma of uterus. OPERATION: Laparoscopic total hysterectomy and bilateral salpingectomy. SURGEON: Corazon Fong M.D. LIQUEFIED PETROLEUM GASFITTER: Dr. Sanchez ANESTHESIA: General. FINDINGS: Leiomyomatous uterus approximately 12 weeks in size noted to have probably an adenomyosis. PROCEDURE: Patient was taken to the operating room, placed in dorsal supine position, prepped and draped in the usual sterile fashion. A timeout was performed in accordance with the hospital regulation. Speculum placed in the vagina. Anterior lip of the cervix was grasped with single-toothed tenaculum. Cervix was dilated to accommodate the VCare device. VCare device was then inserted into the endometrium and covered over the cervix. The Smith catheter was then inserted. Attention was then drawn to umbilicus where 8-mm umbilical incision was made. Veress needle was inserted into the cavity approximately 3-4 L of CO2 was insufflated in the cavity. Veress needle was then removed, and an 8 mm trocar was then inserted. Laparoscope and camera attached. Visualization revealed adenomyosis and a leiomyomatous uterus approximately 12 weeks in size. Attention was then drawn to the trocars were placed on the left side, 2 trocars were placed, 1 in the upper abdomen with a 5-mm incision. The 5-mm cannula was then inserted, and 10 mm parallel to the umbilical incision, a scalpel was then used to make the incision, and an 8-mm trocar was then inserted. Two trocars were placed on the right side parallel to each other, 10 mm apart after scalpel was used to make the 8-mm incision, the trocars were then inserted. Confirmation of placement was done in the abdomen, and the tenaculum was placed in arm 4. The Endoshears were placed in arm 3, and the vessel sealer was placed in arm 1. All instruments were followed to the site of the uterus. After placement had been confirmed and Da Lilly robot had been side docked to the patient's arm and trocars were inserted into the Da Lilly robot and placement of the instruments was done. Confirmation was made. Attention was then drawn to the console, where control of the console was then done. Tenaculum was used to elevate the uterus, and the uterine ovarian ligament was identified, clamped, and cut. Uterine arteries were identified and clamped and cut . The vesiclo reflexion was then entered, and bladder was bluntly dissected out of the operative field. The ligaments were identified and clamped and cut down to the level of the vagina. The same procedure was then repeated on the other side, and bladder was securely placed out of the operative field, and all ligaments were identified, clamped and cut using vessel sealer down to the level of the vagina. Uterus was identified and found to have peristalsis bilaterally. Endoshears were then used to cut the vagina, and circumferential incision on the vagina was then used to cut the cervix away from the vagina. Hemostasis was achieved. The bipolar grasper was then used to grasp the vagina, and the uterus and cervix and tubes were also bilaterally clamped using the vessel sealer and removed through the vagina. All specimens were removed through the vagina. A 2-0 V-Loc suture was then passed to the vagina, and continuous suturing of the vagina using V-Loc suture was then done. Hemostasis was achieved. All pedicles were tracked and found to be hemostatic. The needle was then removed out of arm 1. Irrigation done. Again the ureters were identified and found to be peristalsis. All instruments were then removed, incisions were then closed using 3-0 Vicryl in a continuous subcuticular fashion. Marcaine was then infiltrated to each incision. Wound was washed and dressed and covered. Patient tolerated procedure well. Estimated blood loss was 75 mL. CORAZON FONG M.D. VICTOR [id number] MTDD
--- NOTE | 2018-04-03 08:00 | PN ---
Progress Note (short form) - Note Progress Note: surgery POD #3 Robotic assisted hysterectomy patient seen and examined at bedside. She has been oob ambulating without assistance and her pain is controlled. She is passing gas from below and denies any CP, SOB, N/V, fever or chills. Vital Signs Temp 98.3 F 04/03/18 06:00 Pulse 81 04/03/18 06:00 Resp 20 04/03/18 06:00 BP 120/70 04/03/18 06:00 Pulse Ox 99 04/02/18 22:00 Intake & Output 04/02/18 04/02/18 04/03/18 11:59 23:59 11:59 Intake Total 1100 1400 1500 Output Total 175 1400 1300 Balance 925 0 200 Intake: IV 1100 1000 1500 Lactated Ringers Solution 500 1500 1,000 ml @ 125 mls/hr IV ASDIR MEET Rx#: [id number] Oral 400 Output: Urine 100 1400 1300 Smith 700 Void 300 1300 Estimated Blood Loss 75 Other: Voiding Method Toilet Bowel Movement No labs pending: PE: A&Ox3, NAD Unlabored resp on RA Abd: Obese, Soft, ND with mild tenderness throughout appropriate to status, incisions, c/d/i with no active d/c, surrounding tissue intact with no evidence of surrounding erythema or edema. B/L LE compartments soft, supple and non-tender to palpation with +2 pedal pulses. Problem List - Problems (1) History of robot-assisted laparoscopic hysterectomy Assessment/Plan: POD #1 patient doing well, elevated WBC yesterday but afebrile. 1) Start regular diet this morning 2) OOB as tolerated 3) Encourage IS 4) D/c home later today pending AM labs Code(s): Z90.710 - ACQUIRED ABSENCE OF BOTH CERVIX AND UTERUS
[2018-04-03 08:10] LABS: BASO % 0.7 % (0-2.0); EOS % 0.2 % (0-4.5); HEMATOCRIT 27.5 % (32.4-45.2); HEMOGLOBIN 7.7 GM/dL (10.7-15.3); LYMPH % 13.1 % (8-40); MCHC 28.1 g/dl (32.0-36.0); MEAN CELL VOLUME 59.6 fl (80-96); MEAN PLT VOLUME 11.1 fl (7.5-11.1); MONO % 5.7 % (3.8-10.2); NEUT % 80.3 % (42.8-82.8); PLATELET COUNT 288 K/MM3 (134-434); RBC 4.61 M/mm3 (3.60-5.2); RDW 17.2 % (11.6-15.6); WHITE BLOOD COUNT 16.8 K/mm3 (4.0-10.0)
[2018-04-03 08:18] VITALS: BP 112/71; PULSE 87; TEMP 97.8
[2018-04-03 08:31] LABS: MCH 16.7 pg (25.7-33.7)
[2018-04-03 08:45] LABS: ANION GAP 8 MMOL/L (8-16); BLOOD UREA NITROGEN 10 mg/dL (7-18); CALCIUM 9.1 mg/dL (8.5-10.1); CHLORIDE 105 mmol/L (98-107); CO2 25 mmol/L (21-32); CREATININE 0.6 mg/dL (0.55-1.3); GLUCOSE,RANDOM 81 mg/dL (74-106); POTASSIUM 4.1 mmol/L (3.5-5.1); SODIUM 137 mmol/L (136-145)
[2018-04-03] MEDS: PHENAZOPYRIDINE HCL 100 MG TABLET (FP) PO SCH (09:00)
[2018-04-03] MEDS ORDERED: ENOXAPARIN NA (PORCINE) 40 MG/0.4 ML DISP.SYRIN SQ SCH (10:00)
--- NOTE | 2018-04-03 13:05 | PN ---
Progress Note (short form) - Note Progress Note: Anesthesia postop note 38 y/o F s/p GA for Robotic hysterectomy POD#1, vss, aaox3, pain well controlled No anesthesia complications.
--- NOTE | 2018-04-04 17:55 | PATH ---
Surgical Pathology Report Patient Name: LETICAI CLOUD [facility]. Rec. #: [id number] /Age/Gender: 1980 (Age: 38) / F Account: [id number] Location: AMBULATORY SURG Taken: 04/02/2018 Received: 04/02/2018 Reported: 04/04/2018 Physicians: Corazon Fong M.D. Specimen(s) Received A: UTERUS AND CERVIX B: RIGHT FALLOPIAN TUBE C: LEFT FALLOPIAN TUBE Clinical History Abnormal bleeding Final Diagnosis A. UTERUS AND CERVIX, ROBOTIC LAPAROSCOPIC HYSTERECTOMY: SECRETORY ENDOMETRIUM. SUBSEROSAL AND INTRAMURAL LEIOMYOMA(TA). BENIGN CERVICAL TISSUE. B. FALLOPIAN TUBE, RIGHT, SALPINGECTOMY: FALLOPIAN TUBE WITH PARATUBAL CYST (INCLUDING FIMBRIATED END AND FULL LUMINAL PORTION. C. FALLOPIAN TUBE, LEFT, SALPINGECTOMY: UNREMARKABLE FALLOPIAN TUBE (INCLUDING FIMBRIATED END AND FULL LUMINAL PORTION. Electronically Signed Kary Ahumada M.D. Gross Description A. Received in formalin labeled "uterus and cervix," is a 243 g uterus with an attached cervix and no attached adnexa. The specimen measures 11 cm from superior to inferior, 7.5 cm from anterior to posterior, and 6.5 cm from left to right. The serosa is bruce-gonzalez with focal bulging subserosal nodules. The cervix measures 4 cm in length and averages 3.4 cm in diameter. The ectocervix is bruce, smooth and glistening. The endocervix is unremarkable. The endometrial cavity measures 5 cm in length and 4.5 cm from cornu to cornu. The endometrium is focally thickened, measuring up to 0.3cm in thickness. There are multiple subserosal and intramural nodules present, measuring up to 3.3 cm in greatest dimension. The cut surface of the nodules is bruce, rubbery and displays whorled architecture. No areas of hemorrhage or necrosis are identified. The remaining myometrium is bruce and averages 3.6 cm in thickness. [employer] sections are submitted in 11 cassettes as follows: 1- anterior cervix; 2-posterior cervix; 7-0-weegiqho endomyometrium; 2-5-bzkjioxuq endomyometrium; 8-9- subserosal nodules; 46-36-kqzfdrlpij nodules. B. Received in formalin labeled "right fallopian tube," is a 3.5 cm fimbriated fallopian tube. The outer surface is bruec-gill and smooth. Sectioning reveals an unremarkable lumen. [employer] sections are submitted in 2 cassettes as follows: 1-fimbria; 2-cross sections of fallopian tube. C. Received in formalin labeled "left fallopian tube," is a 3.8 cm in length fimbriated fallopian tube. The outer surface is bruce-gill and smooth. Sectioning reveals an unremarkable lumen. [employer] sections are submitted in 2 cassettes as follows: 1-fimbria; 2-cross sections of fallopian tube. 04/03/2018
== END 2018-04-03 14:30 | disposition home or self-care (01) ==
LOC: JASUSAT 05:09 → EDSTATUS 08:00 → J3W 14:02 → JASUSAT 04-03 14:30
PROVIDERS: ATTEND Obstetrics & Gynecology
PROC: 0UT9FZZ Resection of Uterus, Via Natural or Artificial Opening With Percutaneous Endoscopic Assistance (ICD-10-PCS; principal; 2018-04-02 08:30)
PROC: 0UT7FZZ Resection of Bilateral Fallopian Tubes, Via Natural or Artificial Opening With Percutaneous Endoscopic Assistance (ICD-10-PCS; 2018-04-02 08:30)
DX: N92.0 Excessive and frequent menstruation with regular cycle (principal); D25.9 Leiomyoma of uterus, unspecified; N80.0 Endometriosis of uterus; D64.9 Anemia, unspecified; I10 Essential (primary) hypertension
CPT/HCPCS: 36415; 80048; 84703; 85025; 86850; 86900; 86901; 88305-TC; 88307-TC; 94760

== ENCOUNTER 2024-04-20 16:54 | Emergency (ER) | payer OTHER ==
[2024-04-20 17:12] VITALS: BP 173/105; PULSE 71; RESP 16; TEMP 98.1; BMI 29.0
[2024-04-20 18:35] LABS: BASO % 0.8 % (0-2.0); EOS % 0.8 % (0-4.5); HEMATOCRIT 42.4 % (32.4-45.2); HEMOGLOBIN 14.3 GM/dL (10.7-15.3); LYMPH % 20.3 % (8-40); MCH 28.3 pg (25.7-33.7); MCHC 33.7 g/dl (32.0-36.0); MEAN PLT VOLUME 10.6 fl (7.5-11.1); MONO % 5.3 % (3.8-10.2); NEUT % 72.8 % (42.8-82.8); PLATELET COUNT 201 10^3/uL (134-434); RBC 5.05 M/mm3 (3.60-5.2); RDW 13.7 % (11.6-15.6); WHITE BLOOD COUNT 10.4 K/mm3 (4.0-10.0)
[2024-04-20 18:41] LABS: INR 1.07 (0.83-1.09); PROTHROMBIN TIME (PATIENT) 12.1 SEC (9.7-13.0)
[2024-04-20 18:44] LABS: ACTIVATED PTT 32.3 SECONDS (25.2-36.5)
[2024-04-20 18:50] LABS: POTASSIUM 3.9 mmol/L (3.5-5.1)
[2024-04-20 18:52] LABS: CALCIUM 9.3 mg/dL (8.5-10.1)
[2024-04-20 18:53] LABS: ALBUMIN 3.7 g/dl (3.4-5.0); BLOOD UREA NITROGEN 14.8 mg/dL (7-18); MAGNESIUM 1.9 mg/dL (1.8-2.4)
[2024-04-20 18:56] LABS: CREATININE 0.7 mg/dL (0.55-1.3)
[2024-04-20 18:58] LABS: BILIRUBIN,TOTAL 0.3 mg/dL (0.2-1); TOT PROT 7.1 g/dl (6.4-8.2)
[2024-04-20] MEDS ORDERED: IBUPROFEN 600 MG TABLET (FP) PO ONE (20:14)
[2024-04-20] MEDS ORDERED: DEXAMETHASONE 4 MG TABLET (FP) ONE (20:14)
[2024-04-20] MEDS: DEXAMETHASONE 4 MG TABLET (FP) PO ONE (20:20)
[2024-04-20] MEDS: IBUPROFEN 600 MG TABLET (FP) PO ONE (20:20)
== END 2024-04-20 20:29 | disposition home or self-care (01) ==
LOC: JER 16:54
DX: M54.16 Radiculopathy, lumbar region (principal); R06.02 Shortness of breath; M79.651 Pain in right thigh; M79.89 Other specified soft tissue disorders
CPT/HCPCS: 36415; 71046-TC-FY; 80053; 82550; 83735; 84484; 84703; 85025; 85379; 85610; 85730; 93005; 93010; 93971-TC; 99285-25